=== PATIENT | female | born 1970 | race Caucasian/White ===

== ENCOUNTER 2016-03-19 15:28 | Observation (INO) | payer OTHER ==
[2016-03-19] MEDS ORDERED: ASPIRIN 81 MG (BABY) CHEWABLE TABLET PO ONE (15:39)
[2016-03-19] MEDS ORDERED: NORMAL SALINE 10 ML SYRINGE FLUSH IVP PRN ×2 (15:39→18:14)
[2016-03-19] MEDS ORDERED: Sodium Chloride 0.9% 1,000 ML PRIMARY IV ONE (15:39)
--- NOTE | 2016-03-19 15:41 | EKG ---
[address] [address] Measurements Intervals Cope Rate: 82 P: 78 TN: 166 QRS: -4 QRSD: 97 T: 6 QT: 387 QTc: 425 Interpretive Statements SINUS RHYTHM No previous ECG available for comparison Electronically Signed On 03-19-16 17:54:32 MST by Al Garcia [email or web address]
[2016-03-19 15:48] LABS: BASOPHILS # (AUTO) 0.03 10*3/UL; BASOPHILS % (AUTO) 0.3 % (0-1); EOSINOPHILS % (AUTO) 1.9 % (0-8); HEMATOCRIT 41.9 % (37.0-47.0); HEMOGLOBIN 13.8 g/dL (12.0-16.0); IMM GRAN % (AUTO) 0.2 % (0-5); IMM GRAN# (AUTO) 0.02 10*3/UL; LYMPHOCYTES # (AUTO) 2.96 10*3/uL; LYMPHOCYTES % (AUTO) 26.4 % (10-50); MEAN CORPUSCULAR HEMOGLOBIN 31.3 PG (27-31); MEAN CORPUSCULAR HGB CONC 32.9 g/dL (33-37); MEAN PLATELET VOLUME 8.9 FL (7.4-12.2); MONOCYTES % (AUTO) 7.1 % (5-15); NEUTROPHILS # (AUTO) 7.21 10*3/UL; NEUTROPHILS % (AUTO) 64.1 % (50-80); RDW COEFFICIENT OF VARIATION 13.3 % (11.5-14.5); RED BLOOD COUNT 4.41 10^6/uL (4.20-5.40); WHITE BLOOD COUNT 11.23 10^3/uL (4.8-10.8)
[2016-03-19 15:54] LABS: PLATELET MORPHOLOGY COMMENT NORMAL MORPHOLOGY (NORM)
[2016-03-19 16:00] LABS: PROTHROMBIN TIME 9.8 secs (9.7-11.4)
--- NOTE | 2016-03-19 16:04 | PDOC ---
Chest Pain HPI - General Chief Complaint: Chest Pain Stated Complaint: chest pain Date Seen by Provider: 03/19/16 Time Seen by Provider: 15:30 Source: Patient Exam Limitations: POSITIVE: No limitations Treatment Prior to Arrival: REPORTS: None Nurse's Notes Reviewed & Considered: Yes - History of Present Illness Initial Comments: The patient is a 45-year-old female who presents to the emergency department with chest pain. She had onset of left sided chest pain approximately 45 minutes prior to arrival while driving. This pain radiated up into the left side of her neck and into her left arm. She had some associated numbness in the left arm as well. She states that initially the pain was worse with taking a deep breath and she felt short of breath, lightheaded and slightly nauseated. Initially her pain was fairly severe which she rated an 8 out of 10. Her pain is now more of a dull ache and is approximately 3 out of 10. She has not had similar chest pain previously. She was having some more mild chest pain symptoms a couple of years ago and it sounds like had an echocardiogram which showed some mild thickening of her heart muscle. She also reports that she has had borderline high blood pressure for which she is currently taking carvedilol. She denies any history of diabetes, hyperlipidemia and does not have any known history of heart disease. She does report smoking 1-1-1/2 packs of cigarettes per day, previously smoked 3 packs per day. She does not have any significant family history of heart disease, she thinks may be a grandfather had some heart problems. She does not use any estrogen or other form of hormone replacement therapy. She denies pain or swelling in her extremities. - Patient Home Medications Home Medications: Home Medications Levothyroxine Sodium [Synthroid] 100 mcg PO DAILY 01/20/16 Carvedilol 25 mg PO DAILY 03/19/16 - Patient Allergies Allergies/Adverse Reactions: Allergies Allergy/AdvReac Type Severity Reaction Status Date / Time promethazine HCl Allergy DIZZINESS Verified 03/19/16 15:29 [From Phenergan] acetaminophen [From Percocet] AdvReac HIVES Verified 03/19/16 15:29 oxycodone HCl [From Percocet] AdvReac HIVES Verified 03/19/16 15:29 Past Medical History - heen HEENT History: Denies History Cardiovascular History: Hypertension, Other (please comment) Additional Cardiovasular History: cardiomyopathy Respiratory History: Denies History Gastrointestinal History: Denies History Genitourinary History: Denies History Endocrine History: Hypothyroidism Musculoskeletal History: Denies History Neurological History: Denies History Blood Disorders: Denies History Psychiatric History: Denies History Female Reproductive History: Hysterectomy Obstetrical History: Delivery Cancer History: Denies History In Past Year Been Physically Harmed or Verbally Threatened: No History of MDRO: No Tobacco Use: Current Every Day Smoker Alcohol Use: None Substance Use Type: None Previous Surgical History: Yes Type / Date of Surgery: HYSTERECTOMY. tonsils. appy. c section x 2 Significant Family History: No pertinent family hx Past Medical History Reviewed: Reviewed - No Changes ROS - Limitations ROS Limitations: No Limitations Constitution: DENIES: Chills, Fever Cardiovascular: REPORTS: Chest Pain. DENIES: Heart Racing, Heart Palpitations, Edema Respiratory: REPORTS: Hurts To Breathe, Shortness Of Breath. DENIES: Cough Non Productive, Cough Productive Neurological: REPORTS: Numbness (Some numbness in the left arm) Gastrointestinal: REPORTS: Nausea. DENIES: Abdominal Pain, Vomitting Endocrine: REPORTS: Denies Symptoms Musculoskeletal: REPORTS: Denies MS Symptoms Eyes: REPORTS: Denies Symptoms ENT: REPORTS: Denies Symptoms Skin: DENIES: Rash Chest Pain PE - General Appearance General Appearance: REPORTS: Alert, Cooperative, No Acute Distress - HEENT HEENT: POSITIVE: Head Inspection Nml, Eyes Inspection Nml, Ears Inspection Nml, Nose Inspection Nml, Pharynx Inspect. Nml - Respiratory Respiratory: REPORTS: No Respiratory Distress, Breath Sounds Normal, Chest Non- Tender - Cardiovascular Cardiovascular: REPORTS: Regular Rate and Rhythm, Heart Sounds Normal - Abdomen Abdomen: Soft: (All Quadrants), Normal Bowel Sounds: (All Quadrants), Denies Tenderness: (All Quadrants), No Palpabale Mass: (All Quadrants), No Distention: (All Quadrants) - Skin Skin: REPORTS: Intact, No Rash - Extremities Extremity: Normal ROM: (All Extremities), Normal Inspection: (All Extremities) - Neurological / Psychological Neurological: POSITIVE: Oriented X3, Motor Normal, Sensation Normal Chest Pain Progress - Results Reviewed by me Xrays/CTs/US Reviewed by me: Yes Radiology Findings: Chest x-ray shows normal heart size, normal lung cleaning Lab Results:: Laboratory Results 03/19/16 Range/Units 15:45 WBC 11.23 H (4.8-10.8) 10^3/uL RBC 4.41 (4.20-5.40) 10^6/uL Hgb 13.8 (12.0-16.0) g/dL Hct 41.9 (37.0-47.0) % MCV 95.0 (81-99) FL MCH 31.3 H (27-31) PG MCHC 32.9 L (33-37) g/dL RDW Std Deviation 45.0 (39-50) fL RDW Coeff of Bryan 13.3 (11.5-14.5) % Plt Count 468 H (140-350) 10*3/uL MPV 8.9 (7.4-12.2) FL Immature Gran % (Auto) 0.2 (0-5) % Neut % (Auto) 64.1 (50-80) % Lymph % (Auto) 26.4 (10-50) % Livingston % (Auto) 7.1 (5-15) % Eos % (Auto) 1.9 (0-8) % Baso % (Auto) 0.3 (0-1) % Immature Gran # (Auto) 0.02 10*3/UL Neut # (Auto) 7.21 10*3/UL Lymph # (Auto) 2.96 10*3/uL Livingston # (Auto) 0.80 (0.3-0.8) 10*3/UL Eos # (Auto) 0.21 10*3/UL Baso # (Auto) 0.03 10*3/UL WBC Morphology Comment Normal morphology (NORM) Plt Morphology Comment Normal morphology (NORM) RBC Morph Comment Normal morphology (NORM) PT 9.8 (9.7-11.4) secs INR 0.95 (0.00-5.90) N/A D-Dimer 0.43 (0.00-0.59) mg/L Sodium 139 (135-145) meq/L Potassium 4.3 (3.8-5.2) meq/L Chloride 103 (98-112) meq/L Carbon Dioxide 26 (23-33) meq/L Anion Gap 10 (5-20) BUN 12 (7-22) mg/dL Creatinine 0.8 (0.50-1.20) mg/dL Estimated GFR > 60 (>60 ml/min/1.73m(2)) BUN/Creatinine Ratio 15.00 (6-20) Glucose 93 (78-110) mg/dL Calculated Osmolality 287.0 (267-292) mOsm/kg Calcium 9.9 (8.7-10.7) mg/dL Magnesium 2.0 (1.6-2.4) mg/dL Total Bilirubin 0.7 (0.3-1.2) mg/dL AST 18 (8-39) IU/L ALT 30 (9-52) IU/L Alkaline Phosphatase 88 (38-126) IU/L CK-MB (CK-2) 0.28 (0.00-5.00) NG/DL Troponin I < 0.012 (< 0.040) ng/mL Total Protein 6.9 (6.1-8.0) g/dL Albumin 3.9 (3.5-4.8) g/dL Globulin 3.0 (2.50-4.10) g/dL Albumin/Globulin Ratio 1.30 (1.3-2.0) mg/g Amylase 34 (30-110) U/L Lipase 78 (23-300) IU/L EKG Interpreted/Reviewed By Me:: Yes EKG Interpretation:: POSITIVE: Normal Sinus Rhythm, Normal Rate, Normal Intervals, Normal Pegram, Normal QRS, Normal ST/T - Patient's Progress MDM / ED Course: Her initial EKG did not reveal any acute ST segment or T-wave changes and was a sinus rhythm. She was given aspirin per chest pain protocol. She continued to have a very mild chest pain which she describes as a dull ache. Lab work is all essentially unremarkable and her chest x-ray shows normal heart size normal lung cleaning. She does have some risk factors for coronary artery disease including smoking and borderline high blood pressure. Decision was made to admit for further cardiac testing and monitoring. The patient is in agreement with this plan and Dr. Huerta has agreed to admit the patient. - Consult Counseled: POSITIVE: Patient, Family, RE: Lab Results, RE: Radiology Results, RE : DX Patient Care Time - Estimated PCT Patient Care Time (In Minutes): 35 Vital Signs - Recent Vital Signs Vital Signs: Vital Signs (Last 8 hours) Temp Pulse Resp BP Pulse Ox 03/19/16 15:28 96.4 F L 84 18 143/96 98 - VS Reviewed Vital Signs Reviewed: Yes Discharge Clinical Impression: Chest pain Discharge Disposition: Admit to Observation Condition: Fair
[2016-03-19 16:07] LABS: AMYLASE 34 U/L (30-110); ASPARTATE AMINO TRANSFERASE 18 IU/L (8-39); BILIRUBIN,TOTAL 0.7 mg/dL (0.3-1.2); BLOOD UREA NITROGEN 12 mg/dL (7-22); CALCIUM 9.9 mg/dL (8.7-10.7); CHLORIDE 103 meq/L (98-112); CREATININE 0.8 mg/dL (0.50-1.20); EST GLOMERULAR FILTRATION > 60 (>60 ml/min/1.73m(2)); GLUCOSE 93 mg/dL (78-110); POTASSIUM 4.3 meq/L (3.8-5.2); SODIUM 139 meq/L (135-145); TOTAL PROTEIN 6.9 g/dL (6.1-8.0)
[2016-03-19 16:14] LABS: CREATINE KINASE MB 0.28 NG/DL (0.00-5.00)
[2016-03-19 16:15] LABS: TROPONIN I < 0.012 ng/mL (< 0.040)
[2016-03-19] MEDS ORDERED: MAG HYDROX/AL HYDROX/SIMETH 30 ML SUSP PO PRN (18:14)
[2016-03-19] MEDS ORDERED: ONDANSETRON 4 MG/2 ML VIAL IVP PRN (18:14)
[2016-03-19] MEDS ORDERED: CALCIUM CARBONATE 500 MG (TUMS) CHEWABLE TABLET PO PRN (18:14)
--- NOTE | 2016-03-19 19:11 | PDOC ---
History and Physical - History of Present Illness Date and Time of Service: 03/19/2016, 190 Chief Complaint: Short chest pain and left arm numbness History of Present Illness: This very pleasant 45 year old female who has an underlying history of hypertension with some "thickening of my heart" who comes in complaining of sharp left-sided chest pain, located underneath the breast, and radiating towards the left arm. Patient states that she felt short of breath with this, had some nausea and felt lightheaded but no vomiting. She notes that her left arm was also feeling much more numb and initially it seemed a little weaker but that has gotten better. The numbness persists however. Patient states that she is right-handed. She smokes 1-1/2 packs per day, no history of heart disease, no diabetes, no cholesterol problems, but does have hypertension. Patient states that her pain has improved spontaneously. She got an aspirin in the emergency room but no nitroglycerin. Nothing seemed to make it worse. She states that the onset of this pain in her chest and the left arm numbness and early onset weakness with resolution of all started while she was driving. 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 She's never had a stress test before, but has had an echocardiogram done and that's when they told her her heart was "thick". There was no facial droop and there was no slurred speech. Patient has never had symptoms like this before in her chest or with her arm. Past Medical History Medical History: 1. Hypertension. 2. Tobacco abuse. 3. Restless leg syndrome Surgical History: 1. Hysterectomy. 2. 2. 3. Appendectomy. 4. Tonsillectomy. 5. Tubal removal and oophorectomy Pertinent Family History: No family history of heart disease. There is a family history of diabetes. Patient's father of a sarcoma. Past Social History: Smokes one half packs per day. . 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 Has 7 children all described as healthy. Does not drink alcohol. Tobacco Use: Current Every Day Smoker Do you dip or chew tobacco: No Substance Use Type: None Alcohol Use: None Medication / Allergies Home Medications: Home Medications Medication Instructions Recorded Confirmed Type Levothyroxine Sodium [Synthroid] 100 mcg PO DAILY 01/20/16 03/19/16 History Carvedilol 25 mg PO DAILY 03/19/16 03/19/16 History Allergies/Adverse Reactions: Allergies Allergy/AdvReac Type Severity Reaction Status Date / Time promethazine HCl Allergy DIZZINESS Verified 03/19/16 15:29 [From Phenergan] acetaminophen [From Percocet] AdvReac HIVES Verified 03/19/16 15:29 oxycodone HCl [From Percocet] AdvReac HIVES Verified 03/19/16 15:29 Review of Systems - Review of Systems All Systems: Reviewed & No Additional Complaints Except as Stated (I did a 12 point review of systems and it was negative other than the exceptions noted below and as per history of present illness.) - Constitutional Constitutional: REPORTS: Weight Change Intentional (Patient has lost about 40 pounds intentionally with diet changes and exercise changes.) - Cardiovascular Cardiovascular: REPORTS: See HPI - Genitourinary Genitourinary: REPORTS: Other (Recent kidney stone 3 weeks ago. Patient had a history of urosepsis that was treated in [place] about a year ago or so.) - Musculoskeletal Musculoskeletal: REPORTS: Other (Joint pain primarily and wrists.) - Neurological Neurologic: REPORTS: Negative System Review Exam - Vitals Vital Signs: Vital Signs Weight 246 lb 9.6 oz Vital Signs - Last Taken Temperature 96.4 F L 03/19/16 15:28 Pulse Rate 84 03/19/16 15:28 Respiratory Rate 18 03/19/16 15:28 Blood Pressure 143/96 03/19/16 15:28 Pulse Ox 98 03/19/16 15:28 - General General Appearance: POSITIVE: No Acute Distress, Cooperative - Head Head Exam: POSITIVE: Normal Inspection, Normocephalic, Atraumatic - Eye Eye Exam: POSITIVE: No Scleral Icterus Results - Labs CBC and BMP: 03/19/16 15:45 03/19/16 15:45 Assessment and Plan - Patient Problems (1) Chest pain Current Visit: Yes Status: Acute (2) Left arm numbness Current Visit: Yes Status: Acute (3) Hypertension Current Visit: Yes Status: Acute Qualifiers: Hypertension type: essential hypertension Qualified Description: Essential hypertension Qualifier Code(s): (I10) Essential (primary) hypertension (4) Restless leg syndrome Current Visit: Yes Status: Acute (5) Tobacco abuse Current Visit: Yes Status: Acute - Assessment / Plan Additional Assessment/Plan Details: admit the patient check head CT scan, MRI of brain tomorrow, ECHO if stroke workup negative, then get treadmill stress test aspirin coreg check TSH, continue synthroid Do serial enzymes and EKG if necessary Aspirin/beta madeline/Lovenox if indicated We'll have the patient do a stress test treadmill if workup negative, consider Proton pump inhibitor trial Nitroglycerin when necessary for chest pain Morphine if necessary via IV Oxygen if necessary If testing indicates further need for evaluation, discussion with cardiology. If testing is negative for myocardial infarction and no further indication for coronary artery disease, consider outpatient workup for GI source, pulmonary source, or other I discussed the above and with the patient and she agreed.
[2016-03-19] MEDS ORDERED: NITROGLYCERIN 0.4 MG SL TAB (BOTTLE OF 3) SL PRN (19:19)
[2016-03-19] MEDS ORDERED: NICOTINE 2 MG GUM BUCCAL PRN (19:22)
[2016-03-19] MEDS ORDERED: LORazepam 2 MG/1 ML VIAL IVP PRN ×2 (19:47→21:18)
--- NOTE | 2016-03-19 21:03 | DI ---
HISTORY: Left arm numbness and weakness. COMPARISON: None available. TECHNIQUE: Multiple CT images were obtained through the brain without contrast. FINDINGS: Examination demonstrates normal, symmetric ventricles and other CSF containing spaces. There is no mass, hemorrhage nor midline shift. Surrounding soft tissue and osseous structures are unremarkable. IMPRESSION: 1. No acute intracranial pathology.
[2016-03-19] MEDS ORDERED: ACETAMINOPHEN 325 MG TABLET PO PRN (21:14)
[2016-03-20 04:21] LABS: LDL CHOLESTEROL,CALCULATED 113.6 mg/dL
[2016-03-20 04:38] LABS: FREE T4 (FREE THYROXINE) 0.64 ng/dL (0.93-1.71)
[2016-03-20] MEDS ORDERED: LEVOTHYROXINE 100 MCG TABLET PO SCH ×2 (06:30→12:59)
[2016-03-20] MEDS ORDERED: CARVEDILOL 12.5 MG TABLET PO SCH (09:00)
[2016-03-20] MEDS ORDERED: ASPIRIN 325 MG TABLET PO SCH (09:00)
[2016-03-20 09:51] LABS: BILIRUBIN,URINE NEGATIVE (NEG); CLARITY,URINE CLEAR (CLEAR); GLUCOSE, URINE (UA) NEGATIVE (NEG); LEUKOCYTE ESTERASE ,URINE NEGATIVE (NEG); NITRATE,URINE NEGATIVE (NEG); OCCULT BLOOD,URINE NEGATIVE (NEG); PROTEIN,URINE NEGATIVE (NEG); UROBILINOGEN,URINE 0.2 EU/dL (0.2)
[2016-03-20 09:54] LABS: URINE SAMPLE TYPE CLEAN CATCH URINE
[2016-03-20 10:46] VITALS: RESP 18
--- NOTE | 2016-03-20 11:29 | DI ---
History: Chest pain. Technique: One view portable. Prior study: None. Findings: Lungs are clear and well expanded. No cardiac enlargement. Bony structures intact. Impression: Unremarkable one view portable chest x-ray
--- NOTE | 2016-03-20 14:36 | DI ---
History arm weakness. Evaluate for stroke. Procedure: Study performed on 1.5 Gilda magnet with a variety imaging sequences. Prior study: Yesterday's head CT. Findings: Orbits are unremarkable. No diffusion abnormalities are observed. There is no evidence of s troke. No shift of midline structures is present. Sella is not enlarged. Craniocervical junction is u nremarkable. No white matter abnormalities are evident. Normal flow void in the vessels observed both supra-and in fratentorially. Vestibulocochlear complex unremarkable as depicted. Impression: Unremarkable brain MRI. No focal abnormalities are observed.
--- NOTE | 2016-03-20 15:56 | DI ---
MRA: history of arm weakness. Evaluate for vascular anomaly. See separate report regarding the MRI ex amination Procedure: Time of flight MRA performed on 1.5 Gilda magnet. Findings: The left vertebral is the dominant vessel to the posterior fossa. Both vertebral vessels ar e well circumscribed and the vertebral artery is free of stenosis. No posterior aneurysm formation se en on the reconstructed images or on the original data set. The ALISSA is not seen. No posterior communi cating vessels are visualized. Both internal carotid arteries are symmetric. No evidence of aneurysm formation is noted anteriorly. Impression: Incomplete picayune of Peters with nonvisualization of anterior communicating artery and po sterior communicating vessels. No aneurysm formation seen. No stenoses observed. See other details ab ove
[2016-03-20 18:11] VITALS: TEMP 98
--- NOTE | 2016-03-20 19:33 | DI ---
HISTORY: Left-sided weakness. COMPARISON: None available. TECHNIQUE: Carotid ultrasound was performed and the images were sent for interpretation. FINDINGS: Mild calcified and non-calcified plaque is seen in the carotid bulbs, bilaterally. No sig nificant diameter stenosis. No hemodynamic stenosis by velocity. Normal wave forms are visualized. The bilateral vertebral arteries have antegrade flow. IMPRESSION: 1. Mild calcified and non-calcified plaque is seen in the carotid bulbs, bilaterally. 2. The bilateral vertebral arteries have antegrade flow. NOTE: The interpreting Radiologist was not present at the time of ultrasound interrogation.
--- NOTE | 2016-03-20 20:32 | STRESSTEST ---
[facility] Interpretive Statements This is a 45 YO with HTN, smoker, no family history of heart disease, high cholesterol, and no diabetes. Patient ruled out for stroke and myocardial infarction. Teto protocol stress test done and patient exercised to 5 min, 48 seconds. Had to stop test due to endurance, the test was submaximal. No ST depressions noted. Normal BP response to exercise. Plan: proceed with donna scan stress test due to inability to do ETT. [email or web address]
[2016-03-20] MEDS ORDERED: VARENICLINE TARTRATE 1 MG TABLET PO SCH (21:00)
[2016-03-20] MEDS ORDERED: Simvastatin Tab 40 MG TAB PO SCH (21:00)
--- NOTE | 2016-03-26 15:20 | DCSUMMARY ---
Hospitalization Summary Admit Date: 03/19/16 Discharge Date: 03/20/16 Primary Diagnosis:: atypical chest pain Secondary Diagnosis:: tobacco abuse, precontemplative Hospital Course: This is a 45 YO female that was admitted with chest pain on 03/19/16. She had risk factors of smoking and hypertension with known abnormal ECHO and thickening of her heart muscle. She was admitted, ruled out, and a treadmill stress test was ordered. The treadmill stress test was non diagnostic as the patient could not reach a maximal heart rate due to fatigue. The patient was arranged for an outpatient nuclear medicine stress test. She also had left arm heaviness with no loss of muscle function. We found she had hypothyroidism. Images for stroke such as CT of head and MRI of brain, and carotid doppler studies were all negative for stroke or vascular disease. The patient was noted to have sneaked out of the hospital to smoke and laughed when she was caught. We discussed this in depth, and felt that chantix as an outpatient might be the best thing. Upon no further chest pain with treadmill stress test, we opted to order donna scan stress test as an outpatient. No shortness of breath. Left arm symptoms were unchanged through the hospital stay Disposition: home Condition on discharge: Stable Medications: Home Medications Medication Instructions Recorded Confirmed Type Carvedilol 25 mg PO DAILY 03/19/16 03/19/16 History Levothyroxine Sodium [Synthroid] 1 each PO DAILY #90 tablet 03/20/16 Rx Simvastatin [Zocor] 40 mg PO BEDTIME #30 tab 03/20/16 Rx note we increased synthroid to 137 mcg PO daily with recommendations to recheck labs in 8 weeks. we also placed on cholesterol lowering agent due to LDL > 100. DIET: regular ACTIVITIES: resume normal activities, except do not smoke as it will eventually lead to heart and lung problems and possibly . FOLLOWUP: 1) primary care provider in 1 week 2) show up for donna scan stress test Total time, care, counseling, and coordination of care was greater than 30 min. Exam - Vitals Vital Signs: Vital Signs Temperature 98 F Temperature Source Temporal Artery Scan Pulse Rate [Pulse Oximeter] 71 Pulse Rate 81 Respiratory Rate 18 Blood Pressure [Right Arm] 127/73 Pulse Ox 94 Oxygen Delivery Method Room Air Height 5 ft 7 in Weight 247 lb 3.2 oz - General General Appearance: POSITIVE: No Acute Distress, Cooperative - Head Head Exam: POSITIVE: Normal Inspection, Normocephalic, Atraumatic - Eye Eye Exam: POSITIVE: No Scleral Icterus - Respiratory Respiratory Exam: POSITIVE: Clear to Auscultation - Bilaterally, Breathing Non Labored - Cardiovascular Cardiovascular Exam: POSITIVE: RRR, No Murmur, No Clicks, No Gallops, No Rubs, No JVD - GI/Abdominal GI/Abdominal Exam: POSITIVE: Normal Bowel Sounds, Non Tender, Non Distended, Soft - Extremities Extremities Exam: POSITIVE: No Clubbing Present, No Edema Present, No Cyanosis Present - Neurological Neurological Exam: POSITIVE: Alert, Oriented x 3, No Facial Droop, Speech Intact / Clear, Moves All Extremities Equally Additional Neurological Exam Details: normal muscle strength in arms and legs Data Perinent Studies: Laboratory Results 03/19/16 03/19/16 03/19/16 Range/Units 09:46 15:45 21:50 WBC 11.23 H (4.8-10.8) 10^3/uL RBC 4.41 (4.20-5.40) 10^6/uL Hgb 13.8 (12.0-16.0) g/dL Hct 41.9 (37.0-47.0) % MCV 95.0 (81-99) FL MCH 31.3 H (27-31) PG MCHC 32.9 L (33-37) g/dL RDW Std Deviation 45.0 (39-50) fL RDW Coeff of [place] 13.3 (11.5-14.5) % Plt Count 468 H (140-350) 10*3/uL MPV 8.9 (7.4-12.2) FL Immature Gran % (Auto) 0.2 (0-5) % Neut % (Auto) 64.1 (50-80) % Lymph % (Auto) 26.4 (10-50) % [place] % (Auto) 7.1 (5-15) % Eos % (Auto) 1.9 (0-8) % Baso % (Auto) 0.3 (0-1) % Immature Gran # (Auto) 0.02 10*3/UL Neut # (Auto) 7.21 10*3/UL Lymph # (Auto) 2.96 10*3/uL [place] # (Auto) 0.80 (0.3-0.8) 10*3/UL Eos # (Auto) 0.21 10*3/UL Baso # (Auto) 0.03 10*3/UL WBC Morphology Comment Normal morphology (NORM) Plt Morphology Comment Normal morphology (NORM) RBC Morph Comment Normal morphology (NORM) PT 9.8 (9.7-11.4) secs INR 0.95 (0.00-5.90) N/A D-Dimer 0.43 (0.00-0.59) mg/L Sodium 139 (135-145) meq/L Potassium 4.3 (3.8-5.2) meq/L Chloride 103 (98-112) meq/L Carbon Dioxide 26 (23-33) meq/L Anion Gap 10 (5-20) BUN 12 (7-22) mg/dL Creatinine 0.8 (0.50-1.20) mg/dL Estimated GFR > 60 (>60 ml/min/1.73m(2)) BUN/Creatinine Ratio 15.00 (6-20) Glucose 93 (78-110) mg/dL Calculated Osmolality 287.0 (267-292) mOsm/kg Calcium 9.9 (8.7-10.7) mg/dL Magnesium 2.0 (1.6-2.4) mg/dL Total Bilirubin 0.7 (0.3-1.2) mg/dL AST 18 (8-39) IU/L ALT 30 (9-52) IU/L Alkaline Phosphatase 88 (38-126) IU/L CK-MB (CK-2) 0.28 (0.00-5.00) NG/DL Troponin I < 0.012 < 0.012 (< 0.040) ng/mL Total Protein 6.9 (6.1-8.0) g/dL Albumin 3.9 (3.5-4.8) g/dL Globulin 3.0 (2.50-4.10) g/dL Albumin/Globulin Ratio 1.30 (1.3-2.0) mg/g Triglycerides (44-200) mg/dL Cholesterol (120-200) mg/dL LDL Cholesterol, Calc mg/dL VLDL Cholesterol (0-40) mg/dL HDL Cholesterol (40-150) mg/dL Cholesterol/HDL Ratio (0-4.0) RATIO Amylase 34 (30-110) U/L Lipase 78 (23-300) IU/L TSH (0.2700-4.2000) uIU/mL Free T4 (0.93-1.71) ng/dL Ur Collection Type Clean catch urine Urine Color Yellow Urine Clarity Clear (CLEAR) Urine pH 6.0 (5.0-8.5) Ur Specific [place] 1.025 (1.005-1.030) Urine Protein Negative (NEG) mg/dl Urine Glucose (UA) Negative (NEG) mg/dL Urine Ketones Negative (NEG) Urine Occult Blood Negative (NEG) Urine Nitrate Negative (NEG) Urine Bilirubin Negative (NEG) Urine Urobilinogen 0.2 (0.2) EU/dL Ur Leukocyte Esterase Negative (NEG) Ur Culture Indicated? Culture not set 03/20/16 Range/Units 03:40 WBC (4.8-10.8) 10^3/uL RBC (4.20-5.40) 10^6/uL Hgb (12.0-16.0) g/dL Hct (37.0-47.0) % MCV (81-99) FL MCH (27-31) PG MCHC (33-37) g/dL RDW Std Deviation (39-50) fL RDW Coeff of [place] (11.5-14.5) % Plt Count (140-350) 10*3/uL MPV (7.4-12.2) FL Immature Gran % (Auto) (0-5) % Neut % (Auto) (50-80) % Lymph % (Auto) (10-50) % [place] % (Auto) (5-15) % Eos % (Auto) (0-8) % Baso % (Auto) (0-1) % Immature Gran # (Auto) 10*3/UL Neut # (Auto) 10*3/UL Lymph # (Auto) 10*3/uL [place] # (Auto) (0.3-0.8) 10*3/UL Eos # (Auto) 10*3/UL Baso # (Auto) 10*3/UL WBC Morphology Comment (NORM) Plt Morphology Comment (NORM) RBC Morph Comment (NORM) PT (9.7-11.4) secs INR (0.00-5.90) N/A D-Dimer (0.00-0.59) mg/L Sodium (135-145) meq/L Potassium (3.8-5.2) meq/L Chloride (98-112) meq/L Carbon Dioxide (23-33) meq/L Anion Gap (5-20) BUN (7-22) mg/dL Creatinine (0.50-1.20) mg/dL Estimated GFR (>60 ml/min/1.73m(2)) BUN/Creatinine Ratio (6-20) Glucose (78-110) mg/dL Calculated Osmolality (267-292) mOsm/kg Calcium (8.7-10.7) mg/dL Magnesium (1.6-2.4) mg/dL Total Bilirubin (0.3-1.2) mg/dL AST (8-39) IU/L ALT (9-52) IU/L Alkaline Phosphatase (38-126) IU/L CK-MB (CK-2) (0.00-5.00) NG/DL Troponin I < 0.012 (< 0.040) ng/mL Total Protein (6.1-8.0) g/dL Albumin (3.5-4.8) g/dL Globulin (2.50-4.10) g/dL Albumin/Globulin Ratio (1.3-2.0) mg/g Triglycerides 122 (44-200) mg/dL Cholesterol 166 (120-200) mg/dL LDL Cholesterol, Calc 113.600 mg/dL VLDL Cholesterol 24 (0-40) mg/dL HDL Cholesterol 28 L (40-150) mg/dL Cholesterol/HDL Ratio 5.92 H (0-4.0) RATIO Amylase (30-110) U/L Lipase (23-300) IU/L TSH 11.7 H (0.2700-4.2000) uIU/mL Free T4 0.64 L (0.93-1.71) ng/dL Ur Collection Type Urine Color Urine Clarity (CLEAR) Urine pH (5.0-8.5) Ur Specific [place] (1.005-1.030) Urine Protein (NEG) mg/dl Urine Glucose (UA) (NEG) mg/dL Urine Ketones (NEG) Urine Occult Blood (NEG) Urine Nitrate (NEG) Urine Bilirubin (NEG) Urine Urobilinogen (0.2) EU/dL Ur Leukocyte Esterase (NEG) Ur Culture Indicated? Patient Problems - Patient Problem List (1) Chest pain Status: Acute (2) Hypothyroidism Status: Acute Qualifiers: Hypothyroidism type: acquired Qualified Description: Acquired hypothyroidism Qualifier Code(s): (E03.9) Hypothyroidism, unspecified (3) Hypercholesteremia Status: Acute (4) Left arm numbness Status: Acute (5) Hypertension Status: Acute Qualifiers: Hypertension type: essential hypertension Qualified Description: Essential hypertension Qualifier Code(s): (I10) Essential (primary) hypertension (6) Restless leg syndrome Status: Acute (7) Tobacco abuse Status: Acute
== END 2016-03-20 20:52 | disposition home or self-care (01) ==
LOC: ER 15:28 → MED/SURG 17:33
PROVIDERS: ADMIT Family Medicine; ATTEND Family Medicine
DX: R07.89 Other chest pain (principal); Z72.0 Tobacco use; E03.9 Hypothyroidism, unspecified; E78.00 Pure hypercholesterolemia, unspecified; R20.0 Anesthesia of skin; I10 Essential (primary) hypertension; G25.81 Restless legs syndrome
CPT/HCPCS: 36415; 70450; 70544; 70551; 71010; 80053; 80061; 81003; 82150; 82553; 83690; 83735; 84439; 84443; 84484; 85025; 85379; 85610; 93005; 93010; 93016; 93017; 93018; 93306; 93880; 94761; 96374; 99284; J2060; J7030

== ENCOUNTER 2016-03-23 10:58 | Observation (INO) | payer OTHER ==
[2016-03-23] MEDS ORDERED: NORMAL SALINE 10 ML SYRINGE FLUSH IVP PRN (11:18)
[2016-03-23] MEDS ORDERED: CYANOCOBALAMIN 1000 MCG/1 ML VIAL IM ONE (11:22)
[2016-03-23] MEDS ORDERED: Sodium Chloride 0.9% 1,000 ML, Magnesium Sulfate 2gm (Premix) 50 ML with Multivitamin I... IV ONE ×5 (11:23)
--- NOTE | 2016-03-23 11:31 | PDOC ---
History and Physical - History of Present Illness History of Present Illness: Very nice 45-year-old female past medical history significant for hypertension, tobacco abuse, restless leg syndrome came into the hospital a few days ago complaining of left-sided chest pain radiating to the left arm with heaviness in her arm and numbness she had an MRI of her head and MRA of her head which was unremarkable no signs of stroke she had a Teto protocol stress test which was nondiagnostic patient was not able to walk the full length on the treadmill and was ordered a Lexiscan by Dr. Nieves today I have performed a test and during the test she did not have any chest pain but started to develop some left arm heaviness again no abnormalities on EKG but because of this I admitted her we' ll admitted to the hospital for observation and rule out with cardiac enzymes and await the results of the stress test Patient speech is within normal limits her strength is the normal on both hands but the she says that at times then she is not able to cook pickled meat a couple coffee on the left hand without shaking Past Medical History Medical History: 1. Hypertension. 2. Tobacco abuse. 3. Restless leg syndrome Surgical History: 1. Hysterectomy. 2. 2. 3. Appendectomy. 4. Tonsillectomy. 5. Tubal removal and oophorectomy Pertinent Family History: No family history of heart disease. There is a family history of diabetes. Patient's father of a sarcoma. Past Social History: Smokes one half packs per day. . 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 Has 7 children all described as healthy. Does not drink alcohol. Past Medical History Medical History: 1. Hypertension. 2. Tobacco abuse. 3. Restless leg syndrome Surgical History: 1. Hysterectomy. 2. 2. 3. Appendectomy. 4. Tonsillectomy. 5. Tubal removal and oophorectomy Pertinent Family History: No family history of heart disease. There is a family history of diabetes. Patient's father of a sarcoma. Past Social History: Smokes one half packs per day. . 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 Has 7 children all described as healthy. Does not drink alcohol. Substance Use Type: None Medication / Allergies Home Medications: Home Medications Medication Instructions Recorded Confirmed Type Carvedilol 25 mg PO DAILY 03/19/16 03/19/16 History Carvedilol [Coreg] 25 mg PO DAILY #60 tablet 03/20/16 Rx Levothyroxine Sodium [Synthroid] 1 each PO DAILY #90 tablet 03/20/16 Rx Simvastatin [Zocor] 40 mg PO BEDTIME #30 tab 03/20/16 Rx Allergies/Adverse Reactions: Allergies Allergy/AdvReac Type Severity Reaction Status Date / Time promethazine HCl Allergy DIZZINESS Verified 03/20/16 22:30 [From Phenergan] acetaminophen [From Percocet] AdvReac HIVES Verified 03/20/16 22:30 oxycodone HCl [From Percocet] AdvReac HIVES Verified 03/20/16 22:30 Review of Systems - Review of Systems All Systems: Reviewed & No Additional Complaints Except as Stated - Eye Exam Eye Exam: DENIES: Negative System Review, Acuity Good, Acuity Fair, Acuity Poor , Glasses/Contacts, Vision Loss, Blurring, Redness, Diplopia, Catarats, Other, See HPI - Ear/Nose Exam Ear/Nose Exam: DENIES: Negative System Review, Decreased Hearing, Tinnitus, Otalgia, Sinus Pain, Rhinorrhea, Congestion, Anosmia, Epistaxis, Other, See HPI - Respiratory Respiratory: DENIES: Negative System Review, Cough, Sputum, Dyspnea At Rest, Dyspnea with Exertion, Pleuritic Pain, Hemoptysis, Wheezing, Other, See HPI - Cardiovascular Cardiovascular: DENIES: Negative System Review, Chest Pain, Edema, Syncope, Palpitations, Orthopnea, Paroxysmal Nocturnal Dyspnea, Other, See HPI - Gastrointestinal Gastrointestinal / Abdominal: DENIES: Negative System Review, Nausea, Vomiting, Diarrhea, Constipation, Abdominal Pain, Bloody Stool, Poor Appetite, Heartburn, Regurgitation, Bloating, Lactose Intolerance, Melena, Bright Red Blood Per Rectum, Other, See HPI - Neurological Neurologic: REPORTS: Numbness/Paresthesia (Left arm) Exam - Vitals Vital Signs: Vital Signs Height 5 ft 7 in - General General Appearance: POSITIVE: No Acute Distress, Cooperative - Head Head Exam: POSITIVE: Normal Inspection, Normocephalic, Atraumatic - Eye Eye Exam: POSITIVE: Normal Appearance, PERRL, EOMI - Neck Neck Exam: POSITIVE: Normal Inspection, Full ROM - Respiratory Respiratory Exam: POSITIVE: Clear to Auscultation - Bilaterally, Breathing Non Labored - Cardiovascular Cardiovascular Exam: POSITIVE: RRR, No Murmur, No Clicks - GI/Abdominal GI/Abdominal Exam: POSITIVE: Normal Bowel Sounds, Non Tender, Soft - Extremities Extremities Exam: POSITIVE: No Clubbing Present, No Edema Present, No Cyanosis Present - Neurological Neurological Exam: POSITIVE: Alert, Oriented x 3, CN II-XII Intact, No Facial Droop, Speech Intact / Clear, Moves All Extremities Equally - Psychiatric Psychiatric Exam: POSITIVE: Normal Affect, Normal Mood Assessment and Plan - Patient Problems (1) Hypertension Current Visit: No Status: Acute Qualifiers: Hypertension type: essential hypertension Qualified Description: Essential hypertension Qualifier Code(s): (I10) Essential (primary) hypertension (2) Left arm numbness Current Visit: No Status: Acute (3) Tobacco abuse Current Visit: No Status: Acute (4) Hypothyroidism Current Visit: Yes Status: Acute - Assessment / Plan Additional Assessment/Plan Details: #1 chest pain rule out with left arm numbness Lexiscan was performed we will be awaiting the results I will order troponins 3 considering her risk factors of hypertension and smoking we have admitted the patient definitely her left arm numbness could be a neurological issue from her neck most likely will need an MRI of her neck on Friday since we cannot do these tests here on the weekend #2 hypothyroidism with a TSH of 11 patient is on replacement she also has an appointment with Dr. Rush which is her new primary care physician #3 order vitamin B12 levels I will give her a shot of vitamin B12 and I'll also give her a banana bag also would recommend vitamin B6 I spoke to her and her son all in agreement with the above plan
[2016-03-23] MEDS ORDERED: THIAMINE 100 MG/1 ML - 2 ML ONE (12:04)
[2016-03-23] MEDS ORDERED: Sodium Chloride 0.9% 1,000 ML ONE (12:04)
[2016-03-23] MEDS ORDERED: Magnesium Sulfate 2gm (Premix) 50 ML IV ONE (12:04)
[2016-03-23] MEDS ORDERED: MVI, ADULT NO.1 WITH VIT K 10 ML VIAL IV ONE (12:04)
[2016-03-23] MEDS ORDERED: FOLIC ACID 5 MG/1 ML - 10 ML ONE (12:13)
[2016-03-23] MEDS: Sodium Chloride 0.9% 1,000 ML PRIMARY IV SCH ×2 (12:46→22:19)
[2016-03-23 12:50] LABS: CARDIAC CK 45 IU/L (30-135)
[2016-03-23] MEDS: LORazepam 2 MG/1 ML VIAL IVP PRN ×3 (13:06→22:16)
[2016-03-23 13:18] LABS: TROPONIN I < 0.012 ng/mL (< 0.040)
[2016-03-23 14:38] LABS: FREE T4 (FREE THYROXINE) 0.67 ng/dL (0.93-1.71)
[2016-03-23] MEDS: HEPARIN 5000 UNIT/1 ML SUBCUT SCH ×2 (16:50→23:22)
[2016-03-23] MEDS ORDERED: ZOLPIDEM 10 MG TABLET PO PRN (20:59)
[2016-03-23] MEDS ORDERED: Zolpidem Tab 5 MG TAB PO PRN (21:53)
[2016-03-24 05:51] LABS: ASPARTATE AMINO TRANSFERASE 23 IU/L (8-39); BILIRUBIN,TOTAL 0.3 mg/dL (0.3-1.2); BLOOD UREA NITROGEN 11 mg/dL (7-22); BUN/CREATININE RATIO 18.33 (6-20); CALCIUM 8.2 mg/dL (8.7-10.7); CHLORIDE 108 meq/L (98-112); CREATININE 0.6 mg/dL (0.50-1.20); EST GLOMERULAR FILTRATION > 60 (>60 ml/min/1.73m(2)); GLUCOSE 107 mg/dL (78-110); POTASSIUM 4.2 meq/L (3.8-5.2); SODIUM 138 meq/L (135-145); TOTAL PROTEIN 6.1 g/dL (6.1-8.0)
[2016-03-24 07:54] VITALS: RESP 17; TEMP 97
[2016-03-24] MEDS: Sodium Chloride 0.9% 1,000 ML PRIMARY IV SCH (07:54)
[2016-03-24] MEDS: HEPARIN 5000 UNIT/1 ML SUBCUT SCH (07:54)
[2016-03-24] MEDS ORDERED: NICOTINE 21 MG /DAY PATCH TRANSDERM SCH (09:00)
--- NOTE | 2016-03-24 09:59 | PDOC(PROG) ---
Date and Time of Service: 03/24/2016 9:59 AM Interval History: Subjective Patient was admitted to the hospital last week because of chest pain and some heaviness in her arm and she had also numbness. She has an MRI of the brain and a CT of the brain there were negative. MRA showed incomplete wrangell of Peters. They tried to do the Teto protocol stress test however she couldn't reach the target heart rate so she came in yesterday had the Lexiscan stress test. She said she had some flushing sensation and some shortness of breath and her left arm was heavy after they injected the medication and she was kept here in the hospital for observation. She is feeling better today compared to yesterday. Her arm not completely back to normal though according to her. She did give a history of degenerative disc disease of her neck before. there is some neuropathy. Otherwise no chest pain today. No shortness of breath. Objective : Data - Labs CBC and BMP: 03/24/16 04:58 Labs - Last 24 Hours: Laboratory Results 03/23/16 03/23/16 03/23/16 Range/Units 12:20 17:30 23:22 D-Dimer (0.00-0.59) mg/L Sodium (135-145) meq/L Potassium (3.8-5.2) meq/L Chloride (98-112) meq/L Carbon Dioxide (23-33) meq/L Anion Gap (5-20) BUN (7-22) mg/dL Creatinine (0.50-1.20) mg/dL Estimated GFR (>60 ml/min/1.73m(2)) BUN/Creatinine Ratio (6-20) Glucose (78-110) mg/dL Calculated Osmolality (267-292) mOsm/kg Calcium (8.7-10.7) mg/dL Total Bilirubin (0.3-1.2) mg/dL AST (8-39) IU/L ALT (9-52) IU/L Alkaline Phosphatase (38-126) IU/L Total Creatine Kinase 45 (30-135) IU/L Troponin I < 0.012 < 0.012 < 0.012 (< 0.040) ng/mL Total Protein (6.1-8.0) g/dL Albumin (3.5-4.8) g/dL Globulin (2.50-4.10) g/dL Albumin/Globulin Ratio (1.3-2.0) mg/g TSH 8.09 H (0.2700-4.2000) uIU/mL Free T4 0.67 L (0.93-1.71) ng/dL 03/24/16 Range/Units 04:58 D-Dimer 0.56 (0.00-0.59) mg/L Sodium 138 (135-145) meq/L Potassium 4.2 (3.8-5.2) meq/L Chloride 108 (98-112) meq/L Carbon Dioxide 22 L (23-33) meq/L Anion Gap 8 (5-20) BUN 11 (7-22) mg/dL Creatinine 0.6 (0.50-1.20) mg/dL Estimated GFR > 60 (>60 ml/min/1.73m(2)) BUN/Creatinine Ratio 18.33 (6-20) Glucose 107 (78-110) mg/dL Calculated Osmolality 284.0 (267-292) mOsm/kg Calcium 8.2 L (8.7-10.7) mg/dL Total Bilirubin 0.3 D (0.3-1.2) mg/dL AST 23 (8-39) IU/L ALT 24 (9-52) IU/L Alkaline Phosphatase 80 (38-126) IU/L Total Creatine Kinase (30-135) IU/L Troponin I (< 0.040) ng/mL Total Protein 6.1 (6.1-8.0) g/dL Albumin 3.2 L (3.5-4.8) g/dL Globulin 2.9 (2.50-4.10) g/dL Albumin/Globulin Ratio 1.10 L (1.3-2.0) mg/g TSH (0.2700-4.2000) uIU/mL Free T4 (0.93-1.71) ng/dL Objective : Exam - General General Appearance: No Acute Distress, Cooperative - Head Head Exam: Normal Inspection, Atraumatic - Eye Eye Exam: Normal Appearance - ENT ENT Exam: Normal Exam - Neck Neck Exam: Normal Inspection - Respiratory Respiratory Exam: Clear to Auscultation - Bilaterally - Cardiovascular Cardiovascular Exam: RRR - GI/Abdominal GI/Abdominal Exam: Normal Bowel Sounds, Non Tender, Non Distended, Soft - Rectal Rectal Exam: Deferred - External Exam: Deferred Exam: Deferred - Extremities Extremities Exam: Normal Inspection - Back Back Exam: Normal Inspection - Neurological Neurological Exam: Alert, Oriented x 3, Reflexes Normal, Normal Gait, CN II-XII Intact, No Facial Droop, Moves All Extremities Equally - Psychiatric Psychiatric Exam: Normal Affect - Integumentary Integumentary Exam: Normal Color Assessment and Plan - Patient Problems (1) Chest pain Status: Acute Comment: Recently she had chest pain and that's resolved enzymes repeated were negative. The Lexiscan that she had yesterday was normal. She had an MRI done last week which was negative for stroke she had a CT which was negative and her MRA head showed incomplete wrangell of Peters. Exam today is the normal there is no weakness and sensort defect. I think we can send her home will order an MRI of the cervical spine coming week. Since the MRI is negative the stress test is negative I think she can go back to work. No abnormal findings on physical examination. Sensation is intact (2) Hypothyroidism Status: Acute Comment: She said she was off the medication for while and she was prescribed the levothyroxine again so she can go back on her medication. This need to be followed up later on as an outpatient
--- NOTE | 2016-03-24 13:04 | DCSUMMARY ---
Hospitalization Summary Admit Date: 03/23/16 Discharge Date: 03/24/16 Hospital Course: Discharge diagnoses 1. Episode of left arm heaviness after Lexiscan injection resolved 2. Admission last week for chest pain and left arm numbness and heaviness stress test is negative 3. Hypertension 4. Restless leg syndrome 5. History of degenerative joint disease 6. Hypothyroidism 7. 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 She came in and had the Lexiscan stress test yesterday after injection of the Lexiscan she developed some heaviness in her left arm, shortness of breath and flushing sensation so she was admitted for observation. Her enzymes repeated were negative no EKG changes noted during the stress test. I saw her the next day she was feeling much better overall. Exam apart from obesity was not remarkable. The enzymes were negative. She has hypothyroidism on her labs she knows about as she has history of hypothyroidism however she was not taking her medication for a period of time. We thought she could be discharged home have an MRI of her neck as an outpatient to look into the possibility of her arm heaviness or numbness to be from a neck etiology. She did give a history of previous degenerative joint disease of the cervical spine. Laboratory Results 03/23/16 03/23/16 03/23/16 Range/Units 12:20 17:30 23:22 D-Dimer (0.00-0.59) mg/L Sodium (135-145) meq/L Potassium (3.8-5.2) meq/L Chloride (98-112) meq/L Carbon Dioxide (23-33) meq/L Anion Gap (5-20) BUN (7-22) mg/dL Creatinine (0.50-1.20) mg/dL Estimated GFR (>60 ml/min/1.73m(2)) BUN/Creatinine Ratio (6-20) Glucose (78-110) mg/dL Calculated Osmolality (267-292) mOsm/kg Calcium (8.7-10.7) mg/dL Total Bilirubin (0.3-1.2) mg/dL AST (8-39) IU/L ALT (9-52) IU/L Alkaline Phosphatase (38-126) IU/L Total Creatine Kinase 45 (30-135) IU/L Troponin I < 0.012 < 0.012 < 0.012 (< 0.040) ng/mL Total Protein (6.1-8.0) g/dL Albumin (3.5-4.8) g/dL Globulin (2.50-4.10) g/dL Albumin/Globulin Ratio (1.3-2.0) mg/g TSH 8.09 H (0.2700-4.2000) uIU/mL Free T4 0.67 L (0.93-1.71) ng/dL 03/24/16 Range/Units 04:58 D-Dimer 0.56 (0.00-0.59) mg/L Sodium 138 (135-145) meq/L Potassium 4.2 (3.8-5.2) meq/L Chloride 108 (98-112) meq/L Carbon Dioxide 22 L (23-33) meq/L Anion Gap 8 (5-20) BUN 11 (7-22) mg/dL Creatinine 0.6 (0.50-1.20) mg/dL Estimated GFR > 60 (>60 ml/min/1.73m(2)) BUN/Creatinine Ratio 18.33 (6-20) Glucose 107 (78-110) mg/dL Calculated Osmolality 284.0 (267-292) mOsm/kg Calcium 8.2 L (8.7-10.7) mg/dL Total Bilirubin 0.3 D (0.3-1.2) mg/dL AST 23 (8-39) IU/L ALT 24 (9-52) IU/L Alkaline Phosphatase 80 (38-126) IU/L Total Creatine Kinase (30-135) IU/L Troponin I (< 0.040) ng/mL Total Protein 6.1 (6.1-8.0) g/dL Albumin 3.2 L (3.5-4.8) g/dL Globulin 2.9 (2.50-4.10) g/dL Albumin/Globulin Ratio 1.10 L (1.3-2.0) mg/g TSH (0.2700-4.2000) uIU/mL Free T4 (0.93-1.71) ng/dL Discharge instruction Diet regular Activity as tolerated Medications Home Medications Medication Instructions Recorded Confirmed Type Carvedilol 25 mg PO DAILY 03/19/16 03/19/16 History Levothyroxine Sodium [Synthroid] 1 each PO DAILY #90 tablet 03/20/16 Rx Simvastatin [Zocor] 40 mg PO BEDTIME #30 tab 03/20/16 Rx Follow-up with PCP as scheduled on the Condition at discharge was stable for discharge Exam - Vitals Vital Signs: Vital Signs Temperature 97 F Temperature Source Temporal Artery Scan Pulse Rate [Telemetry] 85 Pulse Rate [Apical] 74 Pulse Rate [Pulse Oximeter] 71 Pulse Rate 69 Respiratory Rate 17 Blood Pressure [Left Arm] 102/55 Pulse Ox 94 Oxygen Delivery Method Room Air Height 5 ft 7 in Weight 247 lb Patient Problems - Patient Problem List (1) Chest pain Status: Acute (2) Hypothyroidism Status: Acute
[2016-03-25] MEDS ORDERED: REMOVAL NICOTINE TRANSDERM SCH (09:00)
== END 2016-03-24 10:25 | disposition home or self-care (01) ==
LOC: MED/SURG 10:58 → INTOOBSV 10:58
PROVIDERS: ADMIT Internal Medicine; ATTEND Internal Medicine
DX: R07.9 Chest pain, unspecified (principal); I10 Essential (primary) hypertension; R20.0 Anesthesia of skin; Z72.0 Tobacco use; E03.9 Hypothyroidism, unspecified; G25.81 Restless legs syndrome
CPT/HCPCS: 36415; 80053; 82550; 82607; 84439; 84443; 84484; 85379; 94761; 96365; 96366; 96372; 96375; J1644; J2060; J3411; J3420; J3475; J7030